=== PATIENT | male | born 1995 | race African-American/Black ===

== ENCOUNTER 2018-04-24 00:05 | Emergency (ER) | payer OTHER | END 2018-04-24 02:17 | disposition home or self-care (01) | LOC: FTE 00:05 | DX: R21 Rash and other nonspecific skin eruption (principal) | CPT/HCPCS: 99283; Z7502 ==

== ENCOUNTER 2018-06-27 23:20 | Emergency (ER) | payer OTHER ==
[2018-06-28] MEDS: NAPROXEN 500 MG TAB PO (00:15)
== END 2018-06-28 01:30 | disposition home or self-care (01) ==
LOC: FTE 06-28 01:30
DX: M79.671 Pain in right foot (principal)
CPT/HCPCS: 73630; 99283-25